=== PATIENT | male | born 1965 | race Caucasian/White ===

== ENCOUNTER 2016-12-25 20:42 | Emergency (ER) | payer OTHER ==
[~2016-12-25] VITALS: Ht 177.8 cm; Wt 97.4 kg
[2016-12-25 21:13] LABS: HEMATOCRIT 45.3 % (38.0-50.0); MCH 27.6 PG (29.0-34.0); MCHC 34.4 G/DL (30.0-36.0); MEAN PLAT.VOLUME 9.6 uM^3 (9.0-12.4); PLATELET COUNT 197 K/uL (156-360); RBC DIS.WIDTH-CV 13.2 % (11.8-14.6); RBC DIS.WIDTH-SD 38.7 % (39-53); RED BLOOD COUNT 5.66 M/uL (4.00-5.50); WHITE BLOOD COUNT 9.7 K/uL (4.1-10.2)
[2016-12-25 21:21] LABS: CHLORIDE 93 mEq/L (99-109); POTASSIUM 4.3 mEq/L (3.7-5.4); SODIUM 128 mEq/L (136-147)
[2016-12-25 21:24] LABS: ANION GAP 12 MEQ/L (2-14)
[2016-12-25 21:25] LABS: TOTAL BILIRUBIN 0.4 mg/dL (0.0-1.0)
[2016-12-25] MEDS ORDERED: GLIMEPIRIDE2 MG PO (21:25)
[2016-12-25] MEDS ORDERED: PIOGLITAZONE HC30 MG PO (21:25)
[2016-12-25] MEDS ORDERED: LISINOPRIL10 MG PO (21:25)
[2016-12-25] MEDS ORDERED: ATORVASTATIN CA40 MG PO (21:25)
[2016-12-25 21:26] LABS: ALKALINE PHOSPHATASE 128 IU/L (3-129)
[2016-12-25] MEDS ORDERED: METFORMIN HCL500 MG PO (21:26)
[2016-12-25] MEDS ORDERED: LO-DOSE ASPIRIN81 M1 PO (21:26)
[2016-12-25 21:27] LABS: GFR ESTIMATE (CALCULATED) > 59 mL/min/
[2016-12-25 21:28] LABS: UREA NITROGEN (BUN) 11 mg/dL (9-23)
[2016-12-25 21:42] LABS: GLUCOSE 465 mg/dL (70-99)
[2016-12-25 22:02] LABS: SAMPLE HEMOLYSIS CHECK 0; SAMPLE ICTERIC CHECK 0; SAMPLE LIPEMIA CHECK 0
[2016-12-25] MEDS ORDERED: BACTRIM,SEPT1 TABLET PO (22:19)
[2016-12-25 22:36] LABS: ADD MIUA? YES; BILIRUBIN NEGATIVE; BLOOD MODERATE; COLOR STRAW ((YELLOW)); GLUCOSE (STRIP) >=500; KETONES 20; LEUKOCYTES NEGATIVE; NITRITE NEGATIVE; PROTEIN (STRIP) >=500; SPECIFIC GRAVITY 1.026 (1.000-1.030); UROBILINOGEN 0.2 MG/DL (0.2-1.0)
[2016-12-25 22:43] LABS: BACTERIA NONE SEEN /HPF; EPITHELIAL CELLS RARE /HPF; MUCUS NONE SEEN /LPF; UCUL ADDED? NO; WHITE BLOOD CELLS 0-5 /HPF (0-5)
[2016-12-25 23:58] LABS: GLUCOSE 173 mg/dL (70-99)
[2016-12-26 01:24] VITALS: BP 171/80
== END 2016-12-26 01:25 | disposition home or self-care (01) ==
LOC: EME 20:42
PROVIDERS: Physician Assistant
DX: L02.811 Cutaneous abscess of head [any part, except face] (principal); E11.65 Type 2 diabetes mellitus with hyperglycemia; E78.5 Hyperlipidemia, unspecified; B95.7 Other staphylococcus as the cause of diseases classified elsewhere; F17.200 Nicotine dependence, unspecified, uncomplicated
CPT/HCPCS: 80053; 81003; 82010; 82947 91; 85027; 87070; 87075; 87077; 87147; 87186; 87205; 99281; 99285; J1885; J2765; J7030